=== PATIENT | female | born 1970 | race Caucasian/White ===

== ENCOUNTER 2023-07-31 18:05 | Emergency (ER) | payer OTHER ==
[~2023-07-31] VITALS: Ht 166.4 cm; Wt 104.5 kg
[2023-07-31 18:14] VITALS: RESP 16; TEMP 98
[2023-07-31] MEDS ORDERED: HYDR-3972 PO (20:07)
[2023-07-31] MEDS ORDERED: HYDROcodone/acetaminophen 10/325mg tab PO ONE (20:15)
[2023-07-31 20:45] VITALS: BP 147/83; PULSE 78; O2SAT 96
== END 2023-07-31 20:48 | disposition home or self-care (01) ==
LOC: ER 18:06
DX: S83.92XA Sprain of unspecified site of left knee, initial encounter (principal); Z79.899 Other long term (current) drug therapy; X50.1XXA Overexertion from prolonged static or awkward postures, initial encounter; Y93.89 Activity, other specified; Y92.89 Other specified places as the place of occurrence of the external cause; Y99.8 Other external cause status
CPT/HCPCS: 73564; 99283